=== PATIENT | female | born 1950 | race Caucasian/White ===

== ENCOUNTER 2016-11-03 05:56 | Day surgery (SDC) | payer OTHER ==
[2016-10-28 10:50] VITALS: BMI 29.1
[2016-10-31 15:53] VITALS: BMI 32.5
[~2016-11-03] VITALS: Ht 154.9 cm; Wt 76.7 kg
[2016-11-03] MEDS ORDERED: SOD CHLORIDE 0.9% 1,000 ML IV SCH (06:00)
[2016-11-03] MEDS ORDERED: CEFAZOLIN 2 GM/50 ML (PMX) 50 ML IVPB SCH (06:00)
[2016-11-03] MEDS ORDERED: BUPIVACAINE 0.25% (MPF) 10 ML 10 ML VIAL ONE ×2 (06:49)
[2016-11-03] MEDS ORDERED: LIDOCAINE 2% (SDV) 5 ML INJ ONE (07:17)
[2016-11-03] MEDS ORDERED: PROPOFOL 0 ML ONE (07:17)
[2016-11-03 07:32] VITALS: Ht 154.9 cm; Wt 76.7 kg
--- NOTE | 2016-11-03 07:50 | RADRPT ---
PROCEDURE: XR Chest. CLINICAL INDICATION: Preop, left back mass TECHNIQUE: A single AP view of the chest was obtained. COMPARISON: None. FINDINGS: Lung volumes are low. No focal airspace opacification, pleural effusion or pneumothorax is seen. T he cardiomediastinal silhouette is within normal limits for size. The osseous structures are unrema rkable. IMPRESSION: Low lung volumes. No radiographic evidence of acute cardiopulmonary disease. RPTAT: HH .Ani Demarco MD, MD Date Time Electronically viewed and signed by .Ani Demarco MD, MD on 11/03/2016 07:49 .G/
--- NOTE | 2016-11-04 22:02 | RADRPT ---
Vent Rate: 65 bpm RR Interval: 0 msec CA Interval: 146 msec QRS Duration: 88 msec QT Interval: 362 msec QTC Interval: 376 msec P-R-T [place]: 35 - 48 - 55 degrees Normal sinus rhythm Normal ECG Electronically Signed By: Adryan Decker [id number]
== END 2016-11-03 07:58 | disposition home or self-care (01) ==
LOC: SDS 05:56
PROVIDERS: ATTEND Surgery
DX: R22.2 Localized swelling, mass and lump, trunk (principal); Z53.9 Procedure and treatment not carried out, unspecified reason
CPT/HCPCS: 71010; 82962; 93005; Z7610

== ENCOUNTER 2018-01-31 14:18 | Emergency (ER) | END 2018-01-31 16:57 | disposition home or self-care (01) ==